=== PATIENT | female | born 1935 | race Two or more races ===

== ENCOUNTER 2019-01-20 11:37 | Inpatient (IN) | payer MEDICARE, MEDICAID ==
[2019-01-20 11:37] VITALS: BMI 30.2
--- NOTE | 2019-01-20 11:57 | C.PDOC ---
History Of Present Illness 83 year old female patient who is on dialysis presents to the ER complaining of left sided chest pain that radiates to the left side of the neck. Associated symptoms includes bilateral leg pain and intermittent tingling sensation in her legs, L>R. Patient denies abdominal pain. Time Seen by Provider: 01/20/19 11:48 Chief Complaint (Nursing): Chest Pain History Per: Patient History/Exam Limitations: no limitations Onset/Duration Of Symptoms: Days Current Symptoms Are (Timing): Still Present Past Medical History Reviewed: Historical Data, Nursing Documentation, Vital Signs - Medical History PMH: Arthritis, Asthma, Bronchitis, CHF, Diabetes, Gall Bladder Disease, HTN, Hypercholesterolemia, Migraine, Chronic Kidney Disease (renal insuff.), TIA Surgical History: Coronary Stent - [facility] Procedures CONTR CEREBR ARTERIOGRAM (01/11/06) CONTRAST AORTOGRAM (01/11/06) INJECT/INFUSE NEC (08/01/13) PACKED CELL TRANSFUSION (08/01/13) VENOUS PUNCTURE NEC (12/21/11) Family History: States: No Known Family Hx - Social History Hx Tobacco Use: No Hx Alcohol Use: No Hx Substance Use: No Review Of Systems Except As Marked, All Systems Reviewed And Found Negative. Cardiovascular: Positive for: Chest Pain (left-side) Gastrointestinal: Negative for: Abdominal Pain Musculoskeletal: Positive for: Neck Pain (left side; radiated from the left side chest pain ), Back Pain (left side; radiated from left-sided chest pain ), Leg Pain (b/l ) Neurological: Positive for: Other (intermittent tingling sensation in her b/l legs) Physical Exam - Physical Exam Appears: Non-toxic, No Acute Distress Skin: Warm, Dry Head: Atraumatic, Normacephalic Eye(s): bilateral: EOMI Chest: Symmetrical, No Deformity, No Tenderness, No Ecchymosis Cardiovascular: Rhythm Regular Respiratory: Normal Breath Sounds Gastrointestinal/Abdominal: Soft, No Tenderness Back: No CVA Tenderness, No Vertebral Tenderness, No Paraspinal Tenderness Extremity: Normal ROM (x4), Pedal Edema (2+ b/l), No Calf Tenderness, No Deformity Extremity: Bilateral: Normal Color And Temperature Pulses: Left Dorsalis Pedis: Normal, Right Dorsalis Pedis: Normal Neurological/Psych: Oriented x3, Normal Speech, Normal Cognition, Normal Motor, Normal Sensation ED Course And Treatment - Laboratory Results Result Diagrams: 01/20/19 12:35 01/20/19 12:35 ECG: Interpreted By Me, Viewed By Me ECG Rhythm: Sinus Rhythm Interpretation Of ECG: T wave inversion in V3-V6. AVF, poor R wave progression Rate From EC O2 Sat by Pulse Oximetry: 98 (on RA) Pulse Ox Interpretation: Normal - Radiology CXR: Interpreted by Me CXR Interpretation: Yes: Cardiomegaly Medical Decision Making Medical Decision Making: Plans: -- labs The case was discussed with Dr. Walter who agrees to admit to tele Disposition - Disposition Disposition: HOSPITALIZED Disposition Time: 14:00 Condition: GOOD - POA Present On Arrival: None - Clinical Impression Clinical Impression: Chest pain - PA / STEWARD/STEWARDESS SECOND CLASS / Resident Statement MD/ has reviewed & agrees with the documentation as recorded. - Scribe Statement The provider has reviewed the documentation as recorded by the Scribe Ricarda Mckenna All medical record entries made by the Scribe were at my direction and personally dictated by me. I have reviewed the chart and agree that the record accurately reflects my personal performance of the history, physical exam, medical decision making, and the department course for this patient. I have also personally directed, reviewed, and agree with the discharge instructions and disposition.
[2019-01-20 12:46] LABS: BASO # 0.1 K/uL (0.0-0.2); BASO % 1.1 % (0.0-2.0); EOS # 0.2 K/uL (0.0-0.7); EOS % 3.7 % (0.0-4.0); HEMOGLOBIN 12.1 g/dL (11.0-16.0); LYMPH # 1.3 K/uL (1.0-4.3); MEAN CELL VOLUME 97.9 fL (81.0-99.0); MEAN CORPUSCULAR HGB CONC 32.7 g/dL (33.0-37.0); MEAN PLATELET VOLUME 9.9 fL (7.2-11.7); MONO # 0.8 K/uL (0.0-0.8); MONO % 15.2 % (0.0-10.0); NEUT # 2.8 K/uL (1.8-7.0); NRBC % 0.1 % (0.0-2.0); RBC 3.77 Mil/uL (3.80-5.20); RED CELL DISTRIBUTION WIDTH 19.9 % (11.5-14.5); WHITE BLOOD COUNT 5.2 K/uL (4.8-10.8)
[2019-01-20 12:59] LABS: INR 1.1; PROTHROMBIN TIME 11.7 SECONDS (9.7-12.2)
[2019-01-20 13:10] LABS: BLOOD UREA NITROGEN 51 mg/dL (7-17); CALCIUM 8.4 mg/dl (8.6-10.4); GFR NON-AFRICAN AMERICAN 8
[2019-01-20 13:16] LABS: B-TYPE NATRIURETIC PEPTIDE 21200 pg/mL (0-900); CK-MB 0.91 ng/mL (0.0-3.38)
[2019-01-20 13:20] LABS: ALBUMIN 4.1 g/dL (3.5-5.0); ALT/SGPT < 6 U/L (9-52); AST/SGOT 60 U/L (14-36)
--- NOTE | 2019-01-20 14:41 | CP.PCM.HP ---
<Arabella Stephenson - Last Filed: 01/20/19 17:09> History of Present Illness - History of Present Illness History of Present Illness: Medicine Note for Hospitalist Service This is an 83 year old female with PMHx of Hypertension, Hyperlipidemia, Type 2 DM (IDDM), ESRD on HD (MWF, left AVF), hx CAD with stents, Anemia of Chronic Disease, Gout, Arthritis, Dementia, Tobacco Use Disorder, CVA, and encephalomalacia who presents to the ED with chest pain x 1 day, dyspnea on exertion x 1 month. Patient reports she ambulates with cane or walker and noticed the past month she has become more short of breath while ambulating. She admits she cannot lie down flat without having a sensation of choking. She admits her bilateral lower extremities have been getting more swollen over time. This morning she woke up and she felt generalized weakness. She admitted to left sided chest pain that radiates up to her neck, associated with diaphoresis and shortness of breath. The left sided chest pain is reproducible on exam. Denied fever, chills, sick contacts, recent travel, abdominal pain, n/v/d/c, or urinary complaints. PMHx: As noted above PSHx: PCI x 5 stents, left shoulder, stent in left arm Meds: Will need to call pharmacy to confirm as pharmacy was closed when called All: NKDA SHx: Smokes 1 pack per month since the age of 12, denied ETOH or illicit drug use FHx: Hypertension, DM Pharmacy: [facility] [phone] PMD: Priya Cardio: Lopez Nephro: Dr. Martinez Present on Admission - Present on Admission Any Indicators Present on Admission: No Past Patient History - Tetanus Immunizations Tetanus Immunization: Unknown - Past Social History Smoking Status: Never Smoked - CARDIAC Hx Congestive Heart Failure: Yes Hx Hypercholesterolemia: Yes Hx Hypertension: Yes - PULMONARY Hx Asthma: Yes Hx Bronchitis: Yes - NEUROLOGICAL Hx Migraine: Yes Hx Transient Ischemic Attacks (TIA): Yes - HEENT Hx HEENT Problems: Yes Hx Cataracts: Yes Hx Glaucoma: Yes - RENAL Hx Chronic Kidney Disease: Yes (renal insuff.) - ENDOCRINE/METABOLIC Hx Hyperthyroidism: No Hx Hypothyroidism: No - HEMATOLOGICAL/ONCOLOGICAL Hx Anemia: No Hx Human Immunodeficiency Virus (HIV): No Hx Sickle Cell Disease: No - INTEGUMENTARY Hx Dermatological Problems: No Hx Basil Cell: No Hx Eczema: No Hx Melanoma: No Hx Psoriasis: No Hx Squamous Cell: No - MUSCULOSKELETAL/RHEUMATOLOGICAL Hx Arthritis: Yes - GASTROINTESTINAL Hx Gall Bladder Disease: Yes - GENITOURINARY/GYNECOLOGICAL Hx Sexually Transmitted Disorders: No - PSYCHIATRIC Hx Substance Use: No - SURGICAL HISTORY Hx Coronary Stent: Yes Meds Allergies/Adverse Reactions: Allergies Allergy/AdvReac Type Severity Reaction Status Date / Time No Known Allergies Allergy Verified 01/20/19 11:57 Physical Exam - Constitutional Appears: No Acute Distress - Head Exam Head Exam: NORMAL INSPECTION, NORMOCEPHALIC - Eye Exam Eye Exam: EOMI, Normal appearance, PERRL Pupil Exam: NORMAL ACCOMODATION - ENT Exam ENT Exam: Mucous Membranes Moist - Respiratory Exam Respiratory Exam: Chest Wall Tenderness (left sided and midaxillary ), Clear to Auscultation Bilateral, NORMAL BREATHING PATTERN. absent: Decreased Breath So unds, Rhonchi, Wheezes - Cardiovascular Exam Cardiovascular Exam: REGULAR RHYTHM, RRR - GI/Abdominal Exam GI & Abdominal Exam: Normal Bowel Sounds, Soft. absent: Distended, Tenderness - Extremities Exam Extremities exam: Positive for: normal inspection, pedal edema (+1 bilaterally R>L ), tenderness (bilateral calf ), pedal pulses present - Neurological Exam Neurological exam: Alert, CN II-XII Intact, Oriented x3 - Psychiatric Exam Psychiatric exam: Normal Affect, Normal Mood - Skin Skin Exam: Dry, Intact, Normal Color, Warm Results - Vital Signs Recent Vital Signs: Last Vital Signs Temp 98 F 01/20/19 11:50 Pulse 76 01/20/19 14:37 Resp 18 01/20/19 14:37 BP 168/52 H 01/20/19 14:37 Pulse Ox 100 01/20/19 14:37 - Labs Result Diagrams: 01/20/19 12:35 01/20/19 12:35 Labs: Laboratory Results - last 24 hr 01/20/19 01/20/19 01/20/19 11:49 12:35 12:35 WBC 5.2 RBC 3.77 L Hgb 12.1 Hct 36.9 MCV 97.9 MCH 32.0 H MCHC 32.7 L RDW 19.9 H Plt Count 162 MPV 9.9 Neut % (Auto) 55.0 Lymph % (Auto) 25.0 Dawes % (Auto) 15.2 H Eos % (Auto) 3.7 Baso % (Auto) 1.1 Neut # (Auto) 2.8 Lymph # (Auto) 1.3 Dawes # (Auto) 0.8 Eos # (Auto) 0.2 Baso # (Auto) 0.1 PT 11.7 INR 1.1 APTT 33.0 Sodium Potassium Chloride Carbon Dioxide Anion Gap BUN Creatinine Est GFR ( Amer) Est GFR (Non-Af Amer) POC Glucose (mg/dL) 104 Random Glucose Calcium Total Bilirubin AST ALT Alkaline Phosphatase Total Creatine Kinase CK-MB (Mass) Troponin I NT-Pro-B Natriuret Pep Total Protein Albumin Globulin Albumin/Globulin Ratio 01/20/19 12:35 WBC RBC Hgb Hct MCV MCH MCHC RDW Plt Count MPV Neut % (Auto) Lymph % (Auto) Dawes % (Auto) Eos % (Auto) Baso % (Auto) Neut # (Auto) Lymph # (Auto) Dawes # (Auto) Eos # (Auto) Baso # (Auto) PT INR APTT Sodium 137 Potassium 5.8 H Chloride 101 Carbon Dioxide 25 Anion Gap 18 BUN 51 H Creatinine 5.1 H Est GFR ( Amer) 10 Est GFR (Non-Af Amer) 8 POC Glucose (mg/dL) Random Glucose 95 Calcium 8.4 L Total Bilirubin 1.2 AST 60 H ALT < 6 L Alkaline Phosphatase 188 H Total Creatine Kinase 60 CK-MB (Mass) 0.91 Troponin I 0.0260 NT-Pro-B Natriuret Pep 01698 H Total Protein 8.1 Albumin 4.1 Globulin 4.0 H Albumin/Globulin Ratio 1.0 Assessment & Plan - Assessment and Plan (Free Text) Plan: Chest Pain r/o ACS - Acute History of CAD with 5 stents - Chronic Dypsnea on Exertion - Acute -- Cardiology consulted - Dr. Marroquin Imaging - EKG: t wave inversions noted V3-V6 - Initial ELISA - negative, follow up ELISA x 2, EKGs x 2 - F/U ECHO Management - Day team will confirm medications as patient is unaware and pharmacy is closed - Started ASA, Plavix, Crestor Bilateral Lower Extremity Swelling - Acute - F/U venous dopplers Hypertension - Chronic - Will need to confirm meds as these are meds from EMR from 2012 ESRD on HD (MWF, left AVF) - Chronic Anemia of Chronic Disease - Chronic -- Nephrology consulted - Dr. Garay Hyperlipidemia - Chronic - Started Crestor - will need to confirm Type 2 DM (IDDM) - Chronic - Accuchecks, hypoglycemic protocol - ISS- low - Glucerna supplements Gout - Chronic Arthritis - Chronic Dementia - Chronic Tobacco Use Disorder - Chronic - Nicotine daily CVA - Chronic Encephalomalacia - Chronic Prophylactic Measures - GI PPX: Protonix - DVT PPX: SCD - PT / OT Eval - Suppp: Glucerna Disposition: Will trend ROMIs and EKG. Follow up Cardio reccs. Will need to confirm home medications DW Dr. Walter, Arabella Stephenson DO, PGY2 <Jordan Walter - Last Filed: 01/20/19 18:04> Results - Vital Signs Recent Vital Signs: Last Vital Signs Temp 97.2 F L 01/20/19 15:47 Pulse 69 01/20/19 16:03 Resp 20 01/20/19 15:47 BP 151/73 H 01/20/19 15:47 Pulse Ox 98 01/20/19 15:47 - Labs Result Diagrams: 01/20/19 12:35 01/20/19 12:35 Labs: Laboratory Results - last 24 hr 01/20/19 01/20/19 01/20/19 11:49 12:35 12:35 WBC 5.2 RBC 3.77 L Hgb 12.1 Hct 36.9 MCV 97.9 MCH 32.0 H MCHC 32.7 L RDW 19.9 H Plt Count 162 MPV 9.9 Neut % (Auto) 55.0 Lymph % (Auto) 25.0 Dawes % (Auto) 15.2 H Eos % (Auto) 3.7 Baso % (Auto) 1.1 Neut # (Auto) 2.8 Lymph # (Auto) 1.3 Dawes # (Auto) 0.8 Eos # (Auto) 0.2 Baso # (Auto) 0.1 PT 11.7 INR 1.1 APTT 33.0 Sodium Potassium Chloride Carbon Dioxide Anion Gap BUN Creatinine Est GFR ( Amer) Est GFR (Non-Af Amer) POC Glucose (mg/dL) 104 Random Glucose Calcium Total Bilirubin AST ALT Alkaline Phosphatase Total Creatine Kinase CK-MB (Mass) Troponin I NT-Pro-B Natriuret Pep Total Protein Albumin Globulin Albumin/Globulin Ratio 01/20/19 01/20/19 12:35 16:23 WBC RBC Hgb Hct MCV MCH MCHC RDW Plt Count MPV Neut % (Auto) Lymph % (Auto) Dawes % (Auto) Eos % (Auto) Baso % (Auto) Neut # (Auto) Lymph # (Auto) Dawes # (Auto) Eos # (Auto) Baso # (Auto) PT INR APTT Sodium 137 Potassium 5.8 H Chloride 101 Carbon Dioxide 25 Anion Gap 18 BUN 51 H Creatinine 5.1 H Est GFR ( Amer) 10 Est GFR (Non-Af Amer) 8 POC Glucose (mg/dL) 83 Random Glucose 95 Calcium 8.4 L Total Bilirubin 1.2 AST 60 H ALT < 6 L Alkaline Phosphatase 188 H Total Creatine Kinase 60 CK-MB (Mass) 0.91 Troponin I 0.0260 NT-Pro-B Natriuret Pep 02308 H Total Protein 8.1 Albumin 4.1 Globulin 4.0 H Albumin/Globulin Ratio 1.0 Attending/Attestation - Attestation I have personally seen and examined this patient.: Yes I have fully participated in the care of the patient.: Yes I have reviewed all pertinent clinical information: Yes Notes (Text): 01/20/19 17:58 Medical attending: Patient was seen and examined by me. Agree with the above note by the resident The patient was not in any acute distress when I came and saw with the medical assisting instructor however the patient reported she still had chest pain that was reproducible on the left upper chest. The patient had a chest XRAY and this showed moderate congestion. There are also history of stents seen on the chest. Also the patient has a history of CAD and at least 5 stents seen the patient we are getting also an echo and also cardiology evaluation as well. Plavix, ASA, Statin. The patient has ESRD and get HD on MWF. The last dialysis was on Wednesday, so we will try to consult performance analyst so she can have it today. Jordan Walter
[2019-01-20] MEDS ORDERED: Morphine 4 MG/ML VIAL ONE (14:44)
--- NOTE | 2019-01-20 14:59 | RAD ---
Date of service: 01/20/2019 HISTORY: chest pain, SOB COMPARISON: No prior. TECHNIQUE: Chest PA and lateral views FINDINGS: LUNGS: No active pulmonary disease. PLEURA: No significant pleural effusion identified. No pneumothorax apparent. CARDIOVASCULAR: No aortic atherosclerotic calcification present. Normal cardiac size. Left axillary vascular stent noted. OSSEOUS STRUCTURES: No significant abnormalities. VISUALIZED UPPER ABDOMEN: Normal. OTHER FINDINGS: None. IMPRESSION: No active disease.
[2019-01-20] MEDS ORDERED: Glucagon Recombinant 1 mg Inj IM PRN (17:01)
[2019-01-20] MEDS ORDERED: Dextrose 50% SYRINGE Inj (50 ml) IV PRN (17:01)
[2019-01-20 20:46] LABS: TROPONIN I 0.028 ng/mL (0.00-0.120)
[2019-01-20 20:47] LABS: CK-MB 0.9 ng/mL (0.0-3.38)
[2019-01-20] MEDS: (Novolin R) Insulin Human Regular 100 units/ml vial SC SCH (22:13)
[2019-01-21 06:41] LABS: BASO % 0.9 % (0.0-2.0); EOS # 0.2 K/uL (0.0-0.7); EOS % 4.3 % (0.0-4.0); HEMOGLOBIN 10.9 g/dL (11.0-16.0); LYMPH # 1.4 K/uL (1.0-4.3); LYMPH % 34.2 % (20.0-40.0); MEAN CELL VOLUME 97.2 fL (81.0-99.0); MEAN CORPUSCULAR HEMOGLOBIN 31.9 pg (27.0-31.0); MEAN CORPUSCULAR HGB CONC 32.8 g/dL (33.0-37.0); MEAN PLATELET VOLUME 9.2 fL (7.2-11.7); MONO # 0.7 K/uL (0.0-0.8); NEUT # 1.8 K/uL (1.8-7.0); NEUT % 43.6 % (50.0-75.0); NRBC % 0.1 % (0.0-2.0); RBC 3.42 Mil/uL (3.80-5.20); WHITE BLOOD COUNT 4.1 K/uL (4.8-10.8)
[2019-01-21 06:49] LABS: ALBUMIN 3.2 g/dL (3.5-5.0); CALCIUM 8.4 mg/dl (8.6-10.4)
[2019-01-21] MEDS: (Novolin R) Insulin Human Regular 100 units/ml vial SC SCH ×4 (07:30→21:10)
--- NOTE | 2019-01-21 11:00 | CP.PCM.CON ---
History of Present Illness - History of Present Illness History of Present Illness: 83 y/o female with ESRD on maintenance hemodialysis every MWF, IDDM, CAD with coronary artery stents, HLD, arthririts was brought to ER last pm for c/o SOB, swelling of legd & Lt sided CP. Pt had repored that lately she gets SOB easily with exertion & cannot breath well when lying flat in the bed Pt also had c/o pain & numbness in both legs , Lt armm & Lt neck She had missed scheduled dialysis yesterday because felt too weak to go to dialysis clinic Pt received dialysis last evening with UF of 2.5 L. Feels better but stil has orthopnea & swelling of legs. Review of Systems - Constitutional Constitutional: As Per HPI Past Patient History - Tetanus Immunizations Tetanus Immunization: Unknown - Past Medical History & Family History Past Medical History?: Yes - Past Social History Smoking Status: Never Smoked - CARDIAC Hx Cardiac Disorders: Yes Hx Congestive Heart Failure: Yes Hx Hypercholesterolemia: Yes Hx Hypertension: Yes - PULMONARY Hx Asthma: Yes Hx Bronchitis: Yes - NEUROLOGICAL Hx Migraine: Yes Hx Transient Ischemic Attacks (TIA): Yes - HEENT Hx HEENT Problems: Yes Hx Cataracts: Yes Hx Glaucoma: Yes - RENAL Hx Chronic Kidney Disease: Yes (renal insuff.) - ENDOCRINE/METABOLIC Hx Hyperthyroidism: No Hx Hypothyroidism: No - HEMATOLOGICAL/ONCOLOGICAL Hx Anemia: No Hx Human Immunodeficiency Virus (HIV): No Hx Sickle Cell Disease: No - INTEGUMENTARY Hx Dermatological Problems: No Hx Basil Cell: No Hx Eczema: No Hx Melanoma: No Hx Psoriasis: No Hx Squamous Cell: No - MUSCULOSKELETAL/RHEUMATOLOGICAL Hx Arthritis: Yes - GASTROINTESTINAL Hx Gall Bladder Disease: Yes - GENITOURINARY/GYNECOLOGICAL Hx Sexually Transmitted Disorders: No - PSYCHIATRIC Hx Substance Use: No - SURGICAL HISTORY Hx Coronary Stent: Yes - ANESTHESIA Hx Anesthesia: Yes Hx Anesthesia Reactions: No Meds Allergies/Adverse Reactions: Allergies Allergy/AdvReac Type Severity Reaction Status Date / Time No Known Allergies Allergy Verified 01/20/19 11:57 - Medications Medications: Current Medications Acetaminophen (Tylenol 325mg Tab) 650 mg PO Q6 PRN PRN Reason: Pain, Mild (1-3) Allopurinol (Zyloprim) 100 mg PO DAILY COUNT INCLUDES THE [facility] Last Admin: 01/21/19 09:16 Dose: 100 mg Amlodipine Besylate (Norvasc) 5 mg PO DAILY COUNT INCLUDES THE [facility] Last Admin: 01/21/19 09:16 Dose: 5 mg Aspirin (Aspirin Chewable) 81 mg PO DAILY COUNT INCLUDES THE [facility] Last Admin: 01/21/19 09:16 Dose: 81 mg Clopidogrel Bisulfate (Plavix) 75 mg PO DAILY COUNT INCLUDES THE [facility] Last Admin: 01/21/19 09:16 Dose: 75 mg Dextrose (Dextrose 50% Inj) 0 ml IV STAT PRN; Protocol PRN Reason: Hypoglycemia Protocol Dextrose (Glutose 15) 0 gm PO ONCE PRN; Protocol PRN Reason: Hypoglycemia Protocol Famotidine (Pepcid) 20 mg PO DAILY COUNT INCLUDES THE [facility] Last Admin: 01/21/19 09:15 Dose: 20 mg Glucagon (Glucagen Diagnostic Kit) 0 mg IM STAT PRN; Protocol PRN Reason: Hypoglycemia Protocol Dextrose (Dextrose 5% In Water 1000 Ml) 1,000 mls @ 0 mls/hr IV .Q0M PRN; Protocol PRN Reason: Hypoglycemia Protocol Insulin Human Regular (Novolin R) 0 unit SC ACHS COUNT INCLUDES THE [facility]; Protocol Last Admin: 01/21/19 07:30 Dose: Not Given Ketorolac Tromethamine (Toradol) 15 mg IVP Q6H PRN PRN Reason: Pain, moderate (4-7) Nicotine (Nicoderm Cq) 1 patch TD DAILY COUNT INCLUDES THE [facility] Rosuvastatin Calcium (Crestor) 10 mg PO HS COUNT INCLUDES THE [facility] Last Admin: 01/21/19 09:17 Dose: 10 mg Physical Exam - Constitutional Additional comments: Appears weak - Head Exam Head Exam: ATRAUMATIC, NORMOCEPHALIC - Eye Exam Additional comments: Conjunctiva pale . No icterus - ENT Exam ENT Exam: Mucous Membranes Moist - Neck Exam Additional comments: Neck supple - Respiratory Exam Respiratory Exam: NORMAL BREATHING PATTERN Additional comments: Bibasilat rales - Cardiovascular Exam Cardiovascular Exam: REGULAR RHYTHM Additional comments: JVD + @ 40 degrees - GI/Abdominal Exam GI & Abdominal Exam: Soft Additional comments: No tenderness - Rectal Exam Rectal Exam: Deferred - Extremities Exam Additional comments: 1+ bipedal edema + bruit over Lt arm AVF Results - Vital Signs Recent Vital Signs: Last Vital Signs Temp 97.6 F 01/21/19 07:00 Pulse 58 L 01/21/19 07:00 Resp 18 01/21/19 07:00 BP 153/54 H 01/21/19 07:00 Pulse Ox 96 01/21/19 07:00 - Labs Result Diagrams: 01/21/19 06:27 01/21/19 06:27 Labs: Laboratory Results - last 24 hr 01/20/19 01/20/19 01/20/19 11:49 12:35 12:35 WBC 5.2 RBC 3.77 L Hgb 12.1 Hct 36.9 MCV 97.9 MCH 32.0 H MCHC 32.7 L RDW 19.9 H Plt Count 162 MPV 9.9 Neut % (Auto) 55.0 Lymph % (Auto) 25.0 Hodgeman % (Auto) 15.2 H Eos % (Auto) 3.7 Baso % (Auto) 1.1 Neut # (Auto) 2.8 Lymph # (Auto) 1.3 Hodgeman # (Auto) 0.8 Eos # (Auto) 0.2 Baso # (Auto) 0.1 PT 11.7 INR 1.1 APTT 33.0 Sodium Potassium Chloride Carbon Dioxide Anion Gap BUN Creatinine Est GFR ( Amer) Est GFR (Non-Af Amer) POC Glucose (mg/dL) 104 Random Glucose Calcium Phosphorus Magnesium Total Bilirubin AST ALT Alkaline Phosphatase Total Creatine Kinase CK-MB (Mass) Troponin I NT-Pro-B Natriuret Pep Total Protein Albumin Globulin Albumin/Globulin Ratio Triglycerides Cholesterol LDL Cholesterol Direct HDL Cholesterol Free T4 TSH 3rd Generation 01/20/19 01/20/19 01/20/19 12:35 16:23 19:59 WBC RBC Hgb Hct MCV MCH MCHC RDW Plt Count MPV Neut % (Auto) Lymph % (Auto) Hodgeman % (Auto) Eos % (Auto) Baso % (Auto) Neut # (Auto) Lymph # (Auto) Hodgeman # (Auto) Eos # (Auto) Baso # (Auto) PT INR APTT Sodium 137 Potassium 5.8 H Chloride 101 Carbon Dioxide 25 Anion Gap 18 BUN 51 H Creatinine 5.1 H Est GFR ( Amer) 10 Est GFR (Non-Af Amer) 8 POC Glucose (mg/dL) 83 Random Glucose 95 Calcium 8.4 L Phosphorus Magnesium Total Bilirubin 1.2 AST 60 H ALT < 6 L Alkaline Phosphatase 188 H Total Creatine Kinase 60 39 CK-MB (Mass) 0.91 0.90 Troponin I 0.0260 0.0280 NT-Pro-B Natriuret Pep 35296 H Total Protein 8.1 Albumin 4.1 Globulin 4.0 H Albumin/Globulin Ratio 1.0 Triglycerides Cholesterol LDL Cholesterol Direct HDL Cholesterol Free T4 TSH 3rd Generation 01/20/19 01/21/19 01/21/19 21:55 06:27 06:27 WBC 4.1 L RBC 3.42 L Hgb 10.9 L Hct 33.2 L MCV 97.2 MCH 31.9 H MCHC 32.8 L RDW 20.0 H Plt Count 145 MPV 9.2 Neut % (Auto) 43.6 L Lymph % (Auto) 34.2 Hodgeman % (Auto) 17.0 H Eos % (Auto) 4.3 H Baso % (Auto) 0.9 Neut # (Auto) 1.8 Lymph # (Auto) 1.4 Hodgeman # (Auto) 0.7 Eos # (Auto) 0.2 Baso # (Auto) 0.0 PT INR APTT Sodium 136 Potassium 3.6 Chloride 98 Carbon Dioxide 32 H Anion Gap 9 L BUN 23 H Creatinine 3.2 H Est GFR ( Amer) 17 Est GFR (Non-Af Amer) 14 POC Glucose (mg/dL) 90 Random Glucose 83 Calcium 8.4 L Phosphorus 3.8 Magnesium 1.9 Total Bilirubin 0.3 AST 22 ALT 13 Alkaline Phosphatase 170 H Total Creatine Kinase CK-MB (Mass) Troponin I NT-Pro-B Natriuret Pep Total Protein 6.4 Albumin 3.2 L D Globulin 3.2 Albumin/Globulin Ratio 1.0 Triglycerides 89 Cholesterol 155 LDL Cholesterol Direct 66 HDL Cholesterol 56 Free T4 TSH 3rd Generation 0.27 L 01/21/19 01/21/19 06:27 06:33 WBC RBC Hgb Hct MCV MCH MCHC RDW Plt Count MPV Neut % (Auto) Lymph % (Auto) Hodgeman % (Auto) Eos % (Auto) Baso % (Auto) Neut # (Auto) Lymph # (Auto) Hodgeman # (Auto) Eos # (Auto) Baso # (Auto) PT INR APTT Sodium Potassium Chloride Carbon Dioxide Anion Gap BUN Creatinine Est GFR ( Amer) Est GFR (Non-Af Amer) POC Glucose (mg/dL) 92 Random Glucose Calcium Phosphorus Magnesium Total Bilirubin AST ALT Alkaline Phosphatase Total Creatine Kinase CK-MB (Mass) Troponin I NT-Pro-B Natriuret Pep Total Protein Albumin Globulin Albumin/Globulin Ratio Triglycerides Cholesterol LDL Cholesterol Direct HDL Cholesterol Free T4 1.65 TSH 3rd Generation Assessment & Plan - Assessment and Plan (Free Text) Assessment: ESRD on maintenance HD Symptoms have improves after dialysis. However still has signes of volume overload.Will arrange for extra dialysis today them continue HD MWF CAD, c/o CP Hx/o CHF IDDM Peripheral neuropathy Hx/o CVA Plan: Short dialysis treatment today UF 2 L as tolerated After today continue HD MWF
--- NOTE | 2019-01-21 12:09 | CP.PCM.PN ---
Subjective - Date & Time of Evaluation Date of Evaluation: 01/21/19 Time of Evaluation: 12:00 - Subjective Subjective: Patient was seen and examined by me Last night patient received HD and this morning will have another short session of HD as well. Patient reports she did well with the HD last night. She has less shortness of breath now. Still has the lower extremity swelling She also reports she still has the tenderness of the left upper chest - it is very reproducible on exam. She had both morphine and toradol order - so I told them to try the toradol Her cardiac enzymes are negative x 3. She went for the echo this morning. Objective - Vital Signs/Intake and Output Vital Signs (last 24 hours): Temp Pulse Resp BP Pulse Ox 97.6 F 58 L 18 153/54 H 96 01/21/19 07:00 01/21/19 07:00 01/21/19 07:00 01/21/19 07:00 01/21/19 07:00 Intake and Output: 01/21/19 01/21/19 06:59 18:59 Output Total 0 Balance 0 - Medications Medications: Current Medications Acetaminophen (Tylenol 325mg Tab) 650 mg PO Q6 PRN PRN Reason: Pain, Mild (1-3) Allopurinol (Zyloprim) 100 mg PO DAILY [facility] Last Admin: 01/21/19 09:16 Dose: 100 mg Amlodipine Besylate (Norvasc) 5 mg PO DAILY [facility] Last Admin: 01/21/19 09:16 Dose: 5 mg Aspirin (Aspirin Chewable) 81 mg PO DAILY [facility] Last Admin: 01/21/19 09:16 Dose: 81 mg Clopidogrel Bisulfate (Plavix) 75 mg PO DAILY [facility] Last Admin: 01/21/19 09:16 Dose: 75 mg Dextrose (Dextrose 50% Inj) 0 ml IV STAT PRN; Protocol PRN Reason: Hypoglycemia Protocol Dextrose (Glutose 15) 0 gm PO ONCE PRN; Protocol PRN Reason: Hypoglycemia Protocol Famotidine (Pepcid) 20 mg PO DAILY [facility] Last Admin: 01/21/19 09:15 Dose: 20 mg Glucagon (Glucagen Diagnostic Kit) 0 mg IM STAT PRN; Protocol PRN Reason: Hypoglycemia Protocol Dextrose (Dextrose 5% In Water 1000 Ml) 1,000 mls @ 0 mls/hr IV .Q0M PRN; Protocol PRN Reason: Hypoglycemia Protocol Insulin Human Regular (Novolin R) 0 unit SC [facility]; Protocol Last Admin: 01/21/19 07:30 Dose: Not Given Ketorolac Tromethamine (Toradol) 15 mg IVP Q6H PRN PRN Reason: Pain, moderate (4-7) Last Admin: 01/21/19 11:20 Dose: 15 mg Nicotine (Nicoderm Cq) 1 patch TD DAILY [facility] Rosuvastatin Calcium (Crestor) 10 mg PO HS [facility] Last Admin: 01/21/19 09:17 Dose: 10 mg - Labs Labs: 01/21/19 06:27 01/21/19 06:27 PT 11.7 SECONDS (9.7-12.2) 01/20/19 12:35 INR 1.1 01/20/19 12:35 APTT 33.0 SECONDS (21-34) 01/20/19 12:35 - Constitutional Appears: Well, Non-toxic, No Acute Distress - Head Exam Head Exam: NORMAL INSPECTION, NORMOCEPHALIC - Eye Exam Eye Exam: EOMI, Normal appearance - ENT Exam ENT Exam: Mucous Membranes Moist - Respiratory Exam Respiratory Exam: Rales, Rhonchi, NORMAL BREATHING PATTERN - Cardiovascular Exam Cardiovascular Exam: REGULAR RHYTHM - GI/Abdominal Exam GI & Abdominal Exam: Soft, Normal Bowel Sounds. absent: Distended, Firm, Guarding, Rigid, Tenderness - Neurological Exam Neurological Exam: Alert, Awake, Oriented x3 Neuro motor strength exam: Left Upper Extremity: 5, Right Upper Extremity: 5, Left Lower Extremity: 5, Right Lower Extremity: 5 - Psychiatric Exam Psychiatric exam: Flat Affect - Skin Skin Exam: Normal Color, Warm Assessment and Plan - Assessment and Plan (Free Text) Assessment: Chest Pain r/o ACS - Acute 01/21: Troponins negative x 3. The chest pain seems reproducible, trying toradol to see if it gives her relief. This morning had the echo, pending read at this time. CXRAY still showing some congestion. On ASA, Plavix, Statin History of CAD with 5 stents - Chronic 01/21: As mentioned previously on ASA, Statin, Plavix. Echo and cardiology evaluation The chest pain is reproducible Bilateral Lower Extremity Swelling - Acute 01/21: Pending venous dopplers this morning Hypertension - Chronic 01/21: Systolic BPs are a little high (140, 150, 160) On norvasc 5. She is going for additional HD today so added very low dose Coreg for now and monitor ESRD on HD (MWF, left AVF) - Chronic Anemia of Chronic Disease - Chronic 01/21: Had HD last night, the patient will have another session this morning. Smoker: 01/21: She still smokes, despite stents, DM, CAD, and right now getting nicotine patch. Hyperlipidemia - Chronic - Started Crestor Type 2 DM (IDDM) - Chronic - Accuchecks, hypoglycemic protocol - ISS- low - Glucerna supplements Gout - Chronic Arthritis - Chronic Dementia - Chronic CVA - Chronic Encephalomalacia - Chronic Prophylactic Measures - GI PPX: Protonix - DVT PPX: SCD - PT / OT Eval - Suppp: Glucerna
[2019-01-22 07:24] LABS: BASO % 0.8 % (0.0-2.0); EOS # 0.2 K/uL (0.0-0.7); EOS % 4.1 % (0.0-4.0); HEMOGLOBIN 11.2 g/dL (11.0-16.0); LYMPH # 1.4 K/uL (1.0-4.3); LYMPH % 36.8 % (20.0-40.0); MEAN CELL VOLUME 96.7 fL (81.0-99.0); MEAN CORPUSCULAR HEMOGLOBIN 32.1 pg (27.0-31.0); MEAN CORPUSCULAR HGB CONC 33.2 g/dL (33.0-37.0); MEAN PLATELET VOLUME 9.8 fL (7.2-11.7); MONO # 0.8 K/uL (0.0-0.8); MONO % 19.8 % (0.0-10.0); NEUT # 1.5 K/uL (1.8-7.0); NEUT % 38.5 % (50.0-75.0); NRBC % 0.2 % (0.0-2.0); RBC 3.49 Mil/uL (3.80-5.20); RED CELL DISTRIBUTION WIDTH 19.6 % (11.5-14.5); WHITE BLOOD COUNT 3.9 K/uL (4.8-10.8)
[2019-01-22] MEDS: (Novolin R) Insulin Human Regular 100 units/ml vial SC SCH ×4 (07:30→21:30)
[2019-01-22 08:00] LABS: ALB/GLOB RATIO 1.1 (1.0-2.1); ALBUMIN 3.3 g/dL (3.5-5.0); CALCIUM 8.3 mg/dl (8.6-10.4)
--- NOTE | 2019-01-22 09:31 | CP.PCM.PN ---
Subjective - Date & Time of Evaluation Date of Evaluation: 01/22/19 Time of Evaluation: 09:00 - Subjective Subjective: Patient reported feeling well. No acute events overnight Still has minimal tenderness left chest that is again reproducible with palpat ion. Denied chest pain at rest, denied shortness of breath, no palpitations, denied abdominal pain, denied nausea vommitting. On telemetry she was 60s to 70s NSR She was able to sleep after the toradol was given. She had HD again yesterday afternoon. Objective - Vital Signs/Intake and Output Vital Signs (last 24 hours): Temp Pulse Resp BP Pulse Ox 98.4 F 64 20 139/55 L 99 01/21/19 23:25 01/22/19 07:02 01/21/19 23:25 01/21/19 23:25 01/21/19 23:25 Intake and Output: 01/22/19 01/22/19 06:59 18:59 Intake Total 300 Balance 300 - Medications Medications: Current Medications Acetaminophen (Tylenol 325mg Tab) 650 mg PO Q6 PRN PRN Reason: Pain, Mild (1-3) Allopurinol (Zyloprim) 100 mg PO DAILY [facility] Last Admin: 01/22/19 09:02 Dose: 100 mg Amlodipine Besylate (Norvasc) 5 mg PO DAILY [facility] Last Admin: 01/22/19 09:02 Dose: 5 mg Aspirin (Aspirin Chewable) 81 mg PO DAILY [facility] Last Admin: 01/22/19 09:01 Dose: 81 mg Carvedilol (Coreg) 3.125 mg PO BID [facility] Last Admin: 01/22/19 09:02 Dose: 3.125 mg Clopidogrel Bisulfate (Plavix) 75 mg PO DAILY [facility] Last Admin: 01/22/19 09:01 Dose: 75 mg Dextrose (Dextrose 50% Inj) 0 ml IV STAT PRN; Protocol PRN Reason: Hypoglycemia Protocol Dextrose (Glutose 15) 0 gm PO ONCE PRN; Protocol PRN Reason: Hypoglycemia Protocol Famotidine (Pepcid) 20 mg PO DAILY [facility] Last Admin: 01/22/19 09:01 Dose: 20 mg Glucagon (Glucagen Diagnostic Kit) 0 mg IM STAT PRN; Protocol PRN Reason: Hypoglycemia Protocol Dextrose (Dextrose 5% In Water 1000 Ml) 1,000 mls @ 0 mls/hr IV .Q0M PRN; Protocol PRN Reason: Hypoglycemia Protocol Insulin Human Regular (Novolin R) 0 unit SC ACHS [facility]; Protocol Last Admin: 01/22/19 07:30 Dose: Not Given Ketorolac Tromethamine (Toradol) 15 mg IVP Q6H PRN PRN Reason: Pain, moderate (4-7) Last Admin: 01/22/19 00:37 Dose: 15 mg Nicotine (Nicoderm Cq) 1 patch TD DAILY [facility] Last Admin: 01/22/19 09:01 Dose: 1 patch Rosuvastatin Calcium (Crestor) 10 mg PO HS [facility] Last Admin: 01/21/19 22:06 Dose: 10 mg - Labs Labs: 01/22/19 07:11 01/22/19 07:11 PT 11.7 SECONDS (9.7-12.2) 01/20/19 12:35 INR 1.1 01/20/19 12:35 APTT 33.0 SECONDS (21-34) 01/20/19 12:35 - Constitutional Appears: Well, No Acute Distress - Head Exam Head Exam: NORMAL INSPECTION - Eye Exam Eye Exam: EOMI - ENT Exam ENT Exam: Mucous Membranes Moist - Respiratory Exam Respiratory Exam: Chest Wall Tenderness, Clear to Ausculation Bilateral, NORMAL BREATHING PATTERN - Cardiovascular Exam Cardiovascular Exam: REGULAR RHYTHM - GI/Abdominal Exam GI & Abdominal Exam: Soft, Normal Bowel Sounds. absent: Guarding, Rigid, Tenderness - Neurological Exam Neurological Exam: Alert, Awake, Oriented x3 Neuro motor strength exam: Left Upper Extremity: 5, Right Upper Extremity: 5 - Psychiatric Exam Psychiatric exam: Normal Affect, Normal Mood - Skin Skin Exam: Normal Color, Warm Assessment and Plan - Assessment and Plan (Free Text) Assessment: Chest Pain, reproducible with palpation. 01/22: Still pending echo to be read. She denied shortness of breath, denied palpitations. 01/21: Troponins negative x 3. The chest pain seems reproducible, trying toradol to see if it gives her relief. This morning had the echo, pending read at this time. CXRAY still showing some congestion. On ASA, Plavix, Statin History of CAD with 5 stents - Chronic 01/21: As mentioned previously on ASA, Statin, Plavix. Echo and cardiology evaluation The chest pain is reproducible Bilateral Lower Extremity Swelling - Acute 2: Preliminary venous dopplers negative 01/21: Pending venous dopplers this morning Hypertension - Chronic 01/21: Systolic BPs are a little high (140, 150, 160) On norvasc 5. She is going for additional HD today so added very low dose Coreg for now and monitor ESRD on HD (MWF, left AVF) - Chronic Anemia of Chronic Disease - Chronic 01/22: Last night had more HD. Lower extremity edema resolved now. Not short of br eath 01/21: Had HD last night, the patient will have another session this morning. Smoker: 01/21: She still smokes, despite stents, DM, CAD, and right now getting nicotine patch. Hyperlipidemia - Chronic - Started Crestor Type 2 DM (IDDM) - Chronic - Accuchecks, hypoglycemic protocol - ISS- low - Glucerna supplements Gout - Chronic Arthritis - Chronic Dementia - Chronic CVA - Chronic Encephalomalacia - Chronic Prophylactic Measures - GI PPX: Protonix - DVT PPX: SCD - PT / OT Eval - Suppp: Glucerna
--- NOTE | 2019-01-22 10:15 | CP.PCM.CON ---
History of Present Illness - History of Present Illness History of Present Illness: asked to see pt by dr jenkins in cardiology coverage. Pt seen and examined in HD unit on 01-21-19 at 430pm. Pt with left sided cp for several weeks. pain is sharp, 5/10, reproducible with palpation. occurs with cough. isnt related to activity or rest. radiates to back and down her spine. no nausea vom prado sob f/c/d/c. Past Patient History - Tetanus Immunizations Tetanus Immunization: Unknown - Past Medical History & Family History Past Medical History?: Yes - Past Social History Smoking Status: Never Smoked - CARDIAC Hx Cardiac Disorders: Yes (CAD, Coronary Stent) Hx Congestive Heart Failure: Yes Hx Hypercholesterolemia: Yes Hx Hypertension: Yes - PULMONARY Hx Asthma: Yes Hx Bronchitis: Yes - NEUROLOGICAL Hx Migraine: Yes Hx Transient Ischemic Attacks (TIA): Yes - HEENT Hx HEENT Problems: Yes Hx Cataracts: Yes Hx Glaucoma: Yes - RENAL Hx Chronic Kidney Disease: Yes (renal insuff.) - ENDOCRINE/METABOLIC Hx Diabetes Mellitus Type 2: Yes Hx Hypothyroidism: No - HEMATOLOGICAL/ONCOLOGICAL Hx Anemia: No Hx Human Immunodeficiency Virus (HIV): No Hx Sickle Cell Disease: No - INTEGUMENTARY Hx Dermatological Problems: No Hx Basil Cell: No Hx Eczema: No Hx Melanoma: No Hx Psoriasis: No Hx Squamous Cell: No - MUSCULOSKELETAL/RHEUMATOLOGICAL Hx Arthritis: Yes - GASTROINTESTINAL Hx Gall Bladder Disease: Yes - GENITOURINARY/GYNECOLOGICAL Hx Sexually Transmitted Disorders: No - PSYCHIATRIC Hx Substance Use: No - SURGICAL HISTORY Hx Coronary Stent: Yes - ANESTHESIA Hx Anesthesia: Yes Hx Anesthesia Reactions: No Meds Allergies/Adverse Reactions: Allergies Allergy/AdvReac Type Severity Reaction Status Date / Time No Known Allergies Allergy Verified 01/20/19 11:57 - Medications Medications: Current Medications Acetaminophen (Tylenol 325mg Tab) 650 mg PO Q6 PRN PRN Reason: Pain, Mild (1-3) Allopurinol (Zyloprim) 100 mg PO DAILY [facility] Last Admin: 01/22/19 09:02 Dose: 100 mg Amlodipine Besylate (Norvasc) 5 mg PO DAILY [facility] Last Admin: 01/22/19 09:02 Dose: 5 mg Aspirin (Aspirin Chewable) 81 mg PO DAILY [facility] Last Admin: 01/22/19 09:01 Dose: 81 mg Carvedilol (Coreg) 3.125 mg PO BID [facility] Last Admin: 01/22/19 09:02 Dose: 3.125 mg Clopidogrel Bisulfate (Plavix) 75 mg PO DAILY [facility] Last Admin: 01/22/19 09:01 Dose: 75 mg Dextrose (Dextrose 50% Inj) 0 ml IV STAT PRN; Protocol PRN Reason: Hypoglycemia Protocol Dextrose (Glutose 15) 0 gm PO ONCE PRN; Protocol PRN Reason: Hypoglycemia Protocol Famotidine (Pepcid) 20 mg PO DAILY [facility] Last Admin: 01/22/19 09:01 Dose: 20 mg Glucagon (Glucagen Diagnostic Kit) 0 mg IM STAT PRN; Protocol PRN Reason: Hypoglycemia Protocol Dextrose (Dextrose 5% In Water 1000 Ml) 1,000 mls @ 0 mls/hr IV .Q0M PRN; Protocol PRN Reason: Hypoglycemia Protocol Insulin Human Regular (Novolin R) 0 unit SC A[facility]S [facility]; Protocol Last Admin: 01/22/19 07:30 Dose: Not Given Ketorolac Tromethamine (Toradol) 15 mg IVP Q6H PRN PRN Reason: Pain, moderate (4-7) Last Admin: 01/22/19 00:37 Dose: 15 mg Lidocaine (Lidoderm) 1 ea TD DAILY [facility] Nicotine (Nicoderm Cq) 1 patch TD DAILY [facility] Last Admin: 01/22/19 09:01 Dose: 1 patch Rosuvastatin Calcium (Crestor) 10 mg PO HS [facility] Last Admin: 01/21/19 22:06 Dose: 10 mg Results - Vital Signs Recent Vital Signs: Last Vital Signs Temp 98.4 F 01/21/19 23:25 Pulse 64 01/22/19 07:02 Resp 20 01/21/19 23:25 BP 139/55 L 01/21/19 23:25 Pulse Ox 99 01/21/19 23:25 - Labs Result Diagrams: 01/22/19 07:11 01/22/19 07:11 Labs: Laboratory Results - last 24 hr 01/21/19 01/21/19 01/21/19 06:27 10:36 11:06 WBC RBC Hgb Hct MCV MCH MCHC RDW Plt Count MPV Neut % (Auto) Lymph % (Auto) [place] % (Auto) Eos % (Auto) Baso % (Auto) Neut # (Auto) Lymph # (Auto) [place] # (Auto) Eos # (Auto) Baso # (Auto) Sodium Potassium Chloride Carbon Dioxide Anion Gap BUN Creatinine Est GFR ( Amer) Est GFR (Non-Af Amer) POC Glucose (mg/dL) 209 H Random Glucose Hemoglobin A1c 5.5 Calcium Phosphorus Magnesium Total Bilirubin AST ALT Alkaline Phosphatase Total Protein Albumin Globulin Albumin/Globulin Ratio Hep Bs Antigen Negative 01/21/19 01/21/19 01/22/19 19:59 21:09 06:21 WBC RBC Hgb Hct MCV MCH MCHC RDW Plt Count MPV Neut % (Auto) Lymph % (Auto) [place] % (Auto) Eos % (Auto) Baso % (Auto) Neut # (Auto) Lymph # (Auto) [place] # (Auto) Eos # (Auto) Baso # (Auto) Sodium Potassium Chloride Carbon Dioxide Anion Gap BUN Creatinine Est GFR ( Amer) Est GFR (Non-Af Amer) POC Glucose (mg/dL) 80 107 74 Random Glucose Hemoglobin A1c Calcium Phosphorus Magnesium Total Bilirubin AST ALT Alkaline Phosphatase Total Protein Albumin Globulin Albumin/Globulin Ratio Hep Bs Antigen 01/22/19 01/22/19 07:11 07:11 WBC 3.9 L RBC 3.49 L Hgb 11.2 Hct 33.7 L MCV 96.7 MCH 32.1 H MCHC 33.2 RDW 19.6 H Plt Count 156 MPV 9.8 Neut % (Auto) 38.5 L Lymph % (Auto) 36.8 [place] % (Auto) 19.8 H Eos % (Auto) 4.1 H Baso % (Auto) 0.8 Neut # (Auto) 1.5 L Lymph # (Auto) 1.4 [place] # (Auto) 0.8 Eos # (Auto) 0.2 Baso # (Auto) 0.0 Sodium 137 Potassium 3.7 Chloride 96 L Carbon Dioxide 30 Anion Gap 15 BUN 21 H Creatinine 3.0 H Est GFR ( Amer) 18 Est GFR (Non-Af Amer) 15 POC Glucose (mg/dL) Random Glucose 77 Hemoglobin A1c Calcium 8.3 L Phosphorus 3.9 Magnesium 1.9 Total Bilirubin 0.5 AST 33 ALT 16 Alkaline Phosphatase 167 H Total Protein 6.2 L Albumin 3.3 L Globulin 2.9 Albumin/Globulin Ratio 1.1 Hep Bs Antigen Assessment & Plan (1) ESRD (end stage renal disease) on dialysis Status: Acute (2) HTN (hypertension) Status: Acute (3) Hx of coronary artery disease Status: Acute (4) Chest pain Status: Acute - Assessment and Plan (Free Text) Plan: Pts pain is noncardiac in nature. trop are neg. pt stable for dc to home from cardiac perspective.
--- NOTE | 2019-01-22 12:32 | CP.PCM.PN ---
Subjective - Date & Time of Evaluation Date of Evaluation: 01/22/19 Time of Evaluation: 12:00 - Subjective Subjective: Pt appears cmfortable but still c/o feeling SOB with exertion. No CP Objective - Vital Signs/Intake and Output Vital Signs (last 24 hours): Temp Pulse Resp BP Pulse Ox 98.4 F 64 20 139/55 L 99 01/21/19 23:25 01/22/19 07:02 01/21/19 23:25 01/21/19 23:25 01/21/19 23:25 Intake and Output: 01/22/19 01/22/19 06:59 18:59 Intake Total 300 Balance 300 - Medications Medications: Current Medications Acetaminophen (Tylenol 325mg Tab) 650 mg PO Q6 PRN PRN Reason: Pain, Mild (1-3) Allopurinol (Zyloprim) 100 mg PO DAILY [facility] Last Admin: 01/22/19 09:02 Dose: 100 mg Amlodipine Besylate (Norvasc) 5 mg PO DAILY [facility] Last Admin: 01/22/19 09:02 Dose: 5 mg Aspirin (Aspirin Chewable) 81 mg PO DAILY [facility] Last Admin: 01/22/19 09:01 Dose: 81 mg Carvedilol (Coreg) 3.125 mg PO BID [facility] Last Admin: 01/22/19 09:02 Dose: 3.125 mg Clopidogrel Bisulfate (Plavix) 75 mg PO DAILY [facility] Last Admin: 01/22/19 09:01 Dose: 75 mg Dextrose (Dextrose 50% Inj) 0 ml IV STAT PRN; Protocol PRN Reason: Hypoglycemia Protocol Dextrose (Glutose 15) 0 gm PO ONCE PRN; Protocol PRN Reason: Hypoglycemia Protocol Famotidine (Pepcid) 20 mg PO DAILY [facility] Last Admin: 01/22/19 09:01 Dose: 20 mg Glucagon (Glucagen Diagnostic Kit) 0 mg IM STAT PRN; Protocol PRN Reason: Hypoglycemia Protocol Dextrose (Dextrose 5% In Water 1000 Ml) 1,000 mls @ 0 mls/hr IV .Q0M PRN; Protocol PRN Reason: Hypoglycemia Protocol Insulin Human Regular (Novolin R) 0 unit SC ACHS [facility]; Protocol Last Admin: 01/22/19 07:30 Dose: Not Given Ketorolac Tromethamine (Toradol) 15 mg IVP Q6H PRN PRN Reason: Pain, moderate (4-7) Last Admin: 01/22/19 00:37 Dose: 15 mg Lidocaine (Lidoderm) 1 ea TD DAILY [facility] Nicotine (Nicoderm Cq) 1 patch TD DAILY [facility] Last Admin: 01/22/19 09:01 Dose: 1 patch Rosuvastatin Calcium (Crestor) 10 mg PO HS [facility] Last Admin: 01/21/19 22:06 Dose: 10 mg - Labs Labs: 01/22/19 07:11 01/22/19 07:11 PT 11.7 SECONDS (9.7-12.2) 01/20/19 12:35 INR 1.1 01/20/19 12:35 APTT 33.0 SECONDS (21-34) 01/20/19 12:35 - Constitutional Appears: No Acute Distress - Head Exam Head Exam: ATRAUMATIC, NORMOCEPHALIC - Eye Exam Eye Exam: Normal appearance - ENT Exam ENT Exam: Mucous Membranes Moist - Respiratory Exam Respiratory Exam: NORMAL BREATHING PATTERN Additional comments: Lungs clear - Cardiovascular Exam Cardiovascular Exam: REGULAR RHYTHM - Extremities Exam Additional comments: trace ankle edema. + bruit over AVF Assessment and Plan - Assessment and Plan (Free Text) Assessment: ESRD on HD MWF SOB, hx/o CHF, CAD DM Plan: Pt had tolerated extra dialysis yesterday BP stable Continue HD per schedule
[2019-01-22] MEDS: Lidocaine 5% Patch TD SCH (13:21)
--- NOTE | 2019-01-22 17:38 | CARD ---
APPROVED REPORT Date of service: 01/21/2019 EXAM: Two-dimensional and M-mode echocardiogram with Doppler and color Doppler. Other Information Quality : GoodRhythm : NSR INDICATION Chest Pain RISK FACTORS Hypertension 2D DIMENSIONS LA [id number] (18-58mL)IVC0.00 cm M-Mode DIMENSIONS Left Atrium (MM)4.27 (2.5-4.0cm)IVSd1.15 (0.7-1.1cm) Aortic Root2.78 (2.2-3.7cm)LVDd5.55 (4.0-5.6cm) Aortic Cusp Exc.1.70 (1.5-2.0cm)PWd1.04 (0.7-1.1cm) FS (%) 34 %LVDs3.64 (2.0-3.8cm) LVEF (%)63 (>50%) Aortic Valve AoV Peak Qgxinwfe113.5cm/Thee Peak GR.15mmHgAI P 1/2 [id number] Mitral Valve MV E Vxsoqvba988.2cm/sMV A Tblhbojk20.7cm/sE/A ratio1.5 TDI Lateral E' Peak V5.51cm/sMedial E' Peak V3.45cm/sE/Lateral E'24.2 E/Medial E'38.6 Tricuspid Valve TR Peak Ielhyksd199hh/sTR Peak Gr.[id number] LEFT VENTRICLE The left ventricle is normal size. There is normal left ventricular wall thickness. Left ventricle systolic function is normal. The Ejection Fraction is 60-65%. There is normal LV segmental wall motion. The left ventricular diastolic function is normal. RIGHT VENTRICLE The right ventricle is normal size. There is normal right ventricular wall thickness. The right ventricular systolic function is normal. ATRIA The left atrium size is normal. The right atrium size is normal. The interatrial septum is intact with no evidence for an atrial septal defect. AORTIC VALVE The aortic valve is normal in structure. There is mild to moderate aortic regurgitation. There is no aortic valvular stenosis. There is no aortic valvular vegetation. MITRAL VALVE The mitral valve is normal in structure. There is no evidence of mitral valve prolapse. There is no mitral valve stenosis. Mitral regurgitation is mild. TRICUSPID VALVE The tricuspid valve is normal in structure. There is moderate tricuspid regurgitation. Right ventricular systolic pressure is estimated at 50-60 mmHg. There is moderate-severe pulmonary hypertension. PULMONIC VALVE The pulmonic valve is not well visualized. There is mild pulmonic valvular regurgitation. GREAT VESSELS The aortic root is normal in size. PERICARDIAL EFFUSION There is no significant pericardial effusion. <Conclusion> Left ventricle systolic function is normal. The Ejection Fraction is 60-65%. There is mild to moderate aortic regurgitation. Mitral regurgitation is mild. There is moderate tricuspid regurgitation. There is moderate-severe pulmonary hypertension. There is mild pulmonic valvular regurgitation.
[2019-01-23] MEDS: (Novolin R) Insulin Human Regular 100 units/ml vial SC SCH ×3 (07:30→17:00)
--- NOTE | 2019-01-23 08:01 | CP.PCM.PN ---
Subjective - Date & Time of Evaluation Date of Evaluation: 01/23/19 Time of Evaluation: 07:59 - Subjective Subjective: Resident Progress Note for Hospitalist Service Objective - Vital Signs/Intake and Output Vital Signs (last 24 hours): Temp Pulse Resp BP Pulse Ox 98 F 65 20 141/59 L 96 01/22/19 23:25 01/23/19 03:07 01/22/19 23:25 01/22/19 23:25 01/22/19 23:25 - Medications Medications: Current Medications Acetaminophen (Tylenol 325mg Tab) 650 mg PO Q6 PRN PRN Reason: Pain, Mild (1-3) Last Admin: 01/22/19 16:54 Dose: 650 mg Allopurinol (Zyloprim) 100 mg PO DAILY [facility] Last Admin: 01/22/19 09:02 Dose: 100 mg Amlodipine Besylate (Norvasc) 5 mg PO DAILY [facility] Last Admin: 01/22/19 09:02 Dose: 5 mg Aspirin (Aspirin Chewable) 81 mg PO DAILY [facility] Last Admin: 01/22/19 09:01 Dose: 81 mg Carvedilol (Coreg) 3.125 mg PO BID [facility] Last Admin: 01/22/19 17:56 Dose: 3.125 mg Clopidogrel Bisulfate (Plavix) 75 mg PO DAILY [facility] Last Admin: 01/22/19 09:01 Dose: 75 mg Dextrose (Dextrose 50% Inj) 0 ml IV STAT PRN; Protocol PRN Reason: Hypoglycemia Protocol Dextrose (Glutose 15) 0 gm PO ONCE PRN; Protocol PRN Reason: Hypoglycemia Protocol Famotidine (Pepcid) 20 mg PO DAILY [facility] Last Admin: 01/22/19 09:01 Dose: 20 mg Glucagon (Glucagen Diagnostic Kit) 0 mg IM STAT PRN; Protocol PRN Reason: Hypoglycemia Protocol Dextrose (Dextrose 5% In Water 1000 Ml) 1,000 mls @ 0 mls/hr IV .Q0M PRN; Protocol PRN Reason: Hypoglycemia Protocol Insulin Human Regular (Novolin R) 0 unit SC ACHS [facility]; Protocol Last Admin: 01/22/19 21:30 Dose: Not Given Ketorolac Tromethamine (Toradol) 15 mg IVP Q6 PRN PRN Reason: Pain, moderate (4-7) Last Admin: 01/23/19 00:17 Dose: 15 mg Lidocaine (Lidoderm) 1 ea TD DAILY [facility] Last Admin: 01/22/19 13:21 Dose: 1 ea Nicotine (Nicoderm Cq) 1 patch TD DAILY [facility] Last Admin: 01/22/19 09:01 Dose: 1 patch Rosuvastatin Calcium (Crestor) 10 mg PO HS [facility] Last Admin: 01/22/19 21:40 Dose: 10 mg - Labs Labs: 01/22/19 07:11 01/22/19 07:11 PT 11.7 SECONDS (9.7-12.2) 01/20/19 12:35 INR 1.1 01/20/19 12:35 APTT 33.0 SECONDS (21-34) 01/20/19 12:35 - Constitutional Appears: Well, No Acute Distress - Head Exam Head Exam: NORMAL INSPECTION - Eye Exam Eye Exam: EOMI - ENT Exam ENT Exam: Mucous Membranes Moist - Respiratory Exam Respiratory Exam: Chest Wall Tenderness, Clear to Auscultation Bilateral, NORMAL BREATHING PATTERN - Cardiovascular Exam Cardiovascular Exam: REGULAR RHYTHM, +S1, +S2. absent: Tachycardia - GI/Abdominal Exam GI & Abdominal Exam: Soft, Normal Bowel Sounds. absent: Guarding, Rigid, Tenderness - Neurological Exam Neurological Exam: Alert, Awake, Oriented x3 Neuro motor strength exam: Left Upper Extremity: 5, Right Upper Extremity: 5 - Psychiatric Exam Psychiatric exam: Normal Affect, Normal Mood - Skin Skin Exam: Normal Color, Warm Assessment and Plan - Assessment and Plan (Free Text) Plan: Chest Pain, reproducible with palpation. 01/22: Still pending echo to be read. She denied shortness of breath, denied palpitations. 01/21: Troponins negative x 3. The chest pain seems reproducible, trying toradol to see if it gives her relief. This morning had the echo, pending read at this time. CXRAY still showing some congestion. On ASA, Plavix, Statin History of CAD with 5 stents - Chronic 01/21: As mentioned previously on ASA, Statin, Plavix. Echo and cardiology evaluation The chest pain is reproducible Bilateral Lower Extremity Swelling - Acute 2: Preliminary venous dopplers negative 01/21: Pending venous dopplers this morning Hypertension - Chronic 01/21: Systolic BPs are a little high (140, 150, 160) On norvasc 5. She is going for additional HD today so added very low dose Coreg for now and monitor ESRD on HD (MWF, left AVF) - Chronic Anemia of Chronic Disease - Chronic 01/22: Last night had more HD. Lower extremity edema resolved now. Not short of breath 01/21: Had HD last night, the patient will have another session this morning. Smoker: 01/21: She still smokes, despite stents, DM, CAD, and right now getting nicotine patch. Hyperlipidemia - Chronic - Started Crestor Type 2 DM (IDDM) - Chronic - Accuchecks, hypoglycemic protocol - ISS- low - Glucerna supplements Gout - Chronic Arthritis - Chronic Dementia - Chronic CVA - Chronic Encephalomalacia - Chronic Prophylactic Measures - GI PPX: Protonix - DVT PPX: SCD - PT / OT Eval - Suppp: Glucerna
[2019-01-23] MEDS: Lidocaine 5% Patch TD SCH ×2 (08:43→09:06)
--- NOTE | 2019-01-23 09:42 | VASCLAB ---
Date of service: 01/21/2019 PROCEDURE: Lower Extremity Venous Duplex Exam. HISTORY: DVT PRIORS: None. TECHNIQUE: Bilateral common femoral, femoral, popliteal and posterior tibial, peroneal and great saphenous veins were evaluated. Flow was assessed with color Doppler, compressibility, assessment of phasic flow and augmentation response. Report prepared by ELIZABETH Garcia FINDINGS: RIGHT: 1. Common Femoral Vein: 1.1. Compressibility - Fully compressible: Thrombus - None : Flow - Phasic: Augmentation -Normal: Reflux - None. 2. Femoral Vein: 2.1. Compressibility - Fully compressible: Thrombus - None : Flow - Phasic: Augmentation -Normal: Reflux - None. 3. Popliteal Vein: 3.1. Compressibility - Fully compressible: Thrombus - None : Flow - Phasic: Augmentation -Normal: Reflux - None. 4. Posterior Tibial Vein: 4.1. Compressibility - Fully compressible: Thrombus - None: Flow - Phasic: Augmentation -Normal: Reflux - None. 5. Peroneal Vein: 5.1. Compressibility - Fully compressible: Thrombus - None: Flow - Phasic: Augmentation -Normal: Reflux - None. 6. Great Saphenous Vein: 6.1. Compressibility - Fully compressible: Thrombus - None: Flow - Phasic: Augmentation - Normal: Reflux - None. LEFT: 1. Common Femoral Vein: 1.1. Compressibility - Fully compressible: Thrombus - None: Flow - Phasic: Augmentation -Normal: Reflux - None. 2. Femoral Vein: 2.1. Compressibility - Fully compressible: Thrombus - None: Flow - Phasic: Augmentation -Normal: Reflux - None. 3. Popliteal Vein: 3.1. Compressibility - Fully compressible: Thrombus - None : Flow - Phasic: Augmentation -Normal: Reflux - None. 4. Posterior Tibial Vein: 4.1. Compressibility - Fully compressible: Thrombus - None: Flow - Phasic: Augmentation -Normal: Reflux - None. 5. Peroneal Vein: 5.1. Compressibility - Fully compressible: Thrombus - None: Flow - Phasic: Augmentation -Normal: Reflux - None. 6. Great Saphenous Vein: 6.1. Compressibility - Fully compressible: Thrombus - None: Flow - Phasic: Augmentation - Normal: Reflux - None. OTHER FINDINGS: None significant. IMPRESSION: Right: No evidence of deep or superficial vein thrombosis of the right lower extremity. Normal valve function noted of the right side. Left: No evidence of deep or superficial vein thrombosis of the left lower extremity. Normal valve function noted of the left side.
[2019-01-23 10:05] LABS: BASO % 0.1 % (0.0-2.0); EOS # 0.2 K/uL (0.0-0.7); EOS % 4.1 % (0.0-4.0); HEMOGLOBIN 11.3 g/dL (11.0-16.0); LYMPH # 1.2 K/uL (1.0-4.3); LYMPH % 30.6 % (20.0-40.0); MEAN CELL VOLUME 97.2 fL (81.0-99.0); MEAN CORPUSCULAR HEMOGLOBIN 31.5 pg (27.0-31.0); MEAN CORPUSCULAR HGB CONC 32.4 g/dL (33.0-37.0); MEAN PLATELET VOLUME 9.3 fL (7.2-11.7); MONO # 0.6 K/uL (0.0-0.8); MONO % 15.8 % (0.0-10.0); NEUT % 49.4 % (50.0-75.0); NRBC % 0.2 % (0.0-2.0); RBC 3.6 Mil/uL (3.80-5.20); RED CELL DISTRIBUTION WIDTH 19.9 % (11.5-14.5)
[2019-01-23 10:20] LABS: ALB/GLOB RATIO 1.2 (1.0-2.1); ALBUMIN 3.4 g/dL (3.5-5.0); CALCIUM 8.4 mg/dl (8.6-10.4)
[2019-01-23 13:38] VITALS: O2SAT 96
[2019-01-23] MEDS ORDERED: Pneumococcal 23-Valent Vaccine IM ONE (14:00)
--- NOTE | 2019-01-23 14:19 | CP.PCM.PN ---
Subjective - Date & Time of Evaluation Date of Evaluation: 01/23/19 Time of Evaluation: 01:50 - Subjective Subjective: Feels better today. Pt states that she is less SOB today. Objective - Vital Signs/Intake and Output Vital Signs (last 24 hours): Temp Pulse Resp BP Pulse Ox 97.8 F 76 18 156/68 H 96 01/23/19 13:37 01/23/19 13:37 01/23/19 13:37 01/23/19 13:37 01/23/19 13:37 - Medications Medications: Current Medications Acetaminophen (Tylenol 325mg Tab) 650 mg PO Q6 PRN PRN Reason: Pain, Mild (1-3) Last Admin: 01/22/19 16:54 Dose: 650 mg Allopurinol (Zyloprim) 100 mg PO DAILY [facility] Last Admin: 01/23/19 09:03 Dose: 100 mg Amlodipine Besylate (Norvasc) 5 mg PO DAILY [facility] Last Admin: 01/22/19 09:02 Dose: 5 mg Aspirin (Aspirin Chewable) 81 mg PO DAILY [facility] Last Admin: 01/23/19 08:59 Dose: 81 mg Carvedilol (Coreg) 3.125 mg PO BID [facility] Last Admin: 01/22/19 17:56 Dose: 3.125 mg Clopidogrel Bisulfate (Plavix) 75 mg PO DAILY [facility] Last Admin: 01/23/19 09:01 Dose: 75 mg Dextrose (Dextrose 50% Inj) 0 ml IV STAT PRN; Protocol PRN Reason: Hypoglycemia Protocol Dextrose (Glutose 15) 0 gm PO ONCE PRN; Protocol PRN Reason: Hypoglycemia Protocol Famotidine (Pepcid) 20 mg PO DAILY [facility] Last Admin: 01/23/19 08:59 Dose: 20 mg Glucagon (Glucagen Diagnostic Kit) 0 mg IM STAT PRN; Protocol PRN Reason: Hypoglycemia Protocol Heparin Sodium (Porcine) (Heparin) 5,000 units SC Q8 [facility] Dextrose (Dextrose 5% In Water 1000 Ml) 1,000 mls @ 0 mls/hr IV .Q0M PRN; Protocol PRN Reason: Hypoglycemia Protocol Insulin Human Regular (Novolin R) 0 unit SC ACHS [facility]; Protocol Last Admin: 01/23/19 07:30 Dose: Not Given Ketorolac Tromethamine (Toradol) 15 mg IVP Q6 PRN PRN Reason: Pain, moderate (4-7) Last Admin: 01/23/19 00:17 Dose: 15 mg Lidocaine (Lidoderm) 1 ea TD DAILY [facility] Last Admin: 01/23/19 09:06 Dose: Not Given Nicotine (Nicoderm Cq) 1 patch TD DAILY [facility] Last Admin: 01/23/19 09:05 Dose: Not Given Rosuvastatin Calcium (Crestor) 10 mg PO HS [facility] Last Admin: 01/22/19 21:40 Dose: 10 mg - Labs Labs: 01/23/19 10:01 01/23/19 10:01 PT 11.7 SECONDS (9.7-12.2) 01/20/19 12:35 INR 1.1 01/20/19 12:35 APTT 33.0 SECONDS (21-34) 01/20/19 12:35 - Constitutional Appears: No Acute Distress - Eye Exam Eye Exam: Normal appearance - ENT Exam ENT Exam: Mucous Membranes Moist - Neck Exam Additional comments: Neck supple - Respiratory Exam Respiratory Exam: NORMAL BREATHING PATTERN Additional comments: Lungs cllear - Cardiovascular Exam Cardiovascular Exam: REGULAR RHYTHM - Extremities Exam Additional comments: No edema Assessment and Plan - Assessment and Plan (Free Text) Assessment: ESRD on maintenance HD Hx/o CHF, CAD DM with neuropathy Plan: Pt tolerated dialysis well today. Continue HD per schedule
--- NOTE | 2019-01-23 15:02 | CP.PCM.DIS ---
Provider - Provider Date of Admission: 01/20/19 14:32 Attending physician: Jordan Walter DO Consults: 01/20/19 16:01 Nephrology Consult Routine Comment: Consulting Provider: Jonathan Garay Consulting Physician: Jonathan Garay Reason for Consult: ESRD on HD MWF (Nephro: Dr. Martinez) 01/20/19 16:28 Cardiology Consult Routine Comment: Consulting Provider: Madhu Jefferson Consulting Physician: Madhu Jefferson Reason for Consult: Chest Pain hx CAD with PCI; HTN, DM, ESRD 01/20/19 16:57 Social Work Referral Routine Comment: uvaldo sore 14 Physician Instructions: Reason For Exam: uvaldo score 14,on hemodialysis,lives alone w/ h 01/20/19 20:32 Cardiology Consult Routine Comment: CHEST PAIN Consulting Provider: Freida Astudillo Consulting Physician: Freida Astudillo Reason for Consult: PHYSICIAN COVERING DR. JEFFERSON Time Spent in preparation of Discharge (in minutes): 35 Diagnosis - Discharge Diagnosis (1) Chest pain Status: Resolved (2) ESRD (end stage renal disease) on dialysis Status: Chronic (3) HTN (hypertension) Status: Chronic (4) Hx of coronary artery disease Status: Chronic Hospital Course - Lab Results Lab Results: Most Recent Lab Values WBC 4.0 K/uL (4.8-10.8) L 01/23/19 10:01 RBC 3.60 Mil/uL (3.80-5.20) L 01/23/19 10:01 Hgb 11.3 g/dL (11.0-16.0) 01/23/19 10:01 Hct 35.0 % (34.0-47.0) 01/23/19 10:01 MCV 97.2 fL (81.0-99.0) 01/23/19 10:01 MCH 31.5 pg (27.0-31.0) H 01/23/19 10:01 MCHC 32.4 g/dL (33.0-37.0) L 01/23/19 10:01 RDW 19.9 % (11.5-14.5) H 01/23/19 10:01 Plt Count 157 K/uL (130-400) 01/23/19 10:01 MPV 9.3 fL (7.2-11.7) 01/23/19 10:01 Neut % (Auto) 49.4 % (50.0-75.0) L 01/23/19 10:01 Lymph % (Auto) 30.6 % (20.0-40.0) 01/23/19 10:01 [place] % (Auto) 15.8 % (0.0-10.0) H 01/23/19 10:01 Eos % (Auto) 4.1 % (0.0-4.0) H 01/23/19 10:01 Baso % (Auto) 0.1 % (0.0-2.0) 01/23/19 10:01 Neut # (Auto) 2.0 K/uL (1.8-7.0) 01/23/19 10:01 Lymph # (Auto) 1.2 K/uL (1.0-4.3) 01/23/19 10:01 [place] # (Auto) 0.6 K/uL (0.0-0.8) 01/23/19 10:01 Eos # (Auto) 0.2 K/uL (0.0-0.7) 01/23/19 10:01 Baso # (Auto) 0.0 K/uL (0.0-0.2) 01/23/19 10:01 PT 11.7 SECONDS (9.7-12.2) 01/20/19 12:35 INR 1.1 01/20/19 12:35 APTT 33.0 SECONDS (21-34) 01/20/19 12:35 Sodium 133 mmol/L (132-148) 01/23/19 10:01 Potassium 4.3 mmol/L (3.6-5.2) 01/23/19 10:01 Chloride 93 mmol/L (98-107) L 01/23/19 10:01 Carbon Dioxide 27 mmol/L (22-30) 01/23/19 10:01 Anion Gap 17 (10-20) 01/23/19 10:01 BUN 44 mg/dL (7-17) H 01/23/19 10:01 Creatinine 4.9 mg/dL (0.7-1.2) H 01/23/19 10:01 Est GFR ( Amer) 10 01/23/19 10:01 Est GFR (Non-Af Amer) 9 01/23/19 10:01 POC Glucose (mg/dL) 164 mg/dL (65-110) H 01/23/19 12:44 Random Glucose 132 mg/dL (65-105) H D 01/23/19 10:01 Hemoglobin A1c 5.5 % (4.2-6.5) 01/21/19 06:27 Calcium 8.4 mg/dl (8.6-10.4) L 01/23/19 10:01 Phosphorus 5.5 mg/dL (2.5-4.5) H 01/23/19 10:01 Magnesium 1.8 mg/dL (1.6-2.3) 01/23/19 10:01 Total Bilirubin 0.5 mg/dL (0.2-1.3) 01/23/19 10:01 AST 35 U/L (14-36) 01/23/19 10:01 ALT 14 U/L (9-52) 01/23/19 10:01 Alkaline Phosphatase 159 U/L (38-126) H 01/23/19 10:01 Total Creatine Kinase 39 U/L (30-135) 01/20/19 19:59 CK-MB (Mass) 0.90 ng/mL (0.0-3.38) 01/20/19 19:59 Troponin I 0.0280 ng/mL (0.00-0.120) 01/20/19 19:59 NT-Pro-B Natriuret Pep 96104 pg/mL (0-900) H 01/20/19 12:35 Total Protein 6.3 g/dL (6.3-8.3) 01/23/19 10:01 Albumin 3.4 g/dL (3.5-5.0) L 01/23/19 10:01 Globulin 2.9 gm/dL (2.2-3.9) 01/23/19 10:01 Albumin/Globulin Ratio 1.2 (1.0-2.1) 01/23/19 10:01 Triglycerides 89 mg/dL (0-149) 01/21/19 06:27 Cholesterol 155 mg/dL (0-199) 01/21/19 06:27 LDL Cholesterol Direct 66 mg/dL (0-129) 01/21/19 06:27 HDL Cholesterol 56 mg/dL (30-70) 01/21/19 06:27 Free T4 1.65 ng/dL (0.78-2.19) 01/21/19 06:27 TSH 3rd Generation 0.27 mIU/L (0.46-4.68) L 01/21/19 06:27 Hep Bs Antigen Negative (NEGATIVE) 01/21/19 10:36 - Hospital Course Hospital Course: On admission: This is an 83 year old female with PMHx of Hypertension, Hyperlipidemia, Type 2 DM (IDDM), ESRD on HD (MWF, left AVF), hx CAD with stents, Anemia of Chronic Disease, Gout, Arthritis, Dementia, Tobacco Use Disorder, CVA, and encephalomalacia who presents to the ED with chest pain x 1 day, dyspnea on exertion x 1 month. Patient reports she ambulates with cane or walker and noticed the past month she has become more short of breath while ambulating. She admits she cannot lie down flat without having a sensation of choking. She admits her bilateral lower extremities have been getting more swollen over time. This morning she woke up and she felt generalized weakness. She admitted to left sided chest pain that radiates up to her neck, associated with diaphoresis and shortness of breath. The left sided chest pain is reproducible on exam. Denied fever, chills, sick contacts, recent travel, ab dominal pain, n/v/d/c, or urinary complaints. During hospital stay: Troponins were negative x3. EKG showed RBBB, left anterior fascicular block. Cardiology was consulted, advised that chest pain is noncardiac in nature. CXR showed some congestion. Venous dopplers were done which were negative for DVT. Nephrology was consulted, recommended extra dialysis due to signs of overload which was done on 01/21. In total, patient had dialysis on 01/20, 01/21, and 01/23 which she tolerated well. ECHO was done which showed LVEF 60-65%, mild to moderate AR, mild MR, moderate TR, moderate severe pulmonary hypertension, mild pulmonic valvular regurgitation. Patient still smokes despite counseling. She was placed on nicotine patch. Patient was optimized for discharge and was discharged with prescriptions for nicotine patch and lidoderm patch. Please see EMR for full summary. Discharge Exam - Additional Findings Additional findings: - Constitutional Appears: Well, No Acute Distress - Head Exam Head Exam: NORMAL INSPECTION, NORMOCEPHALIC - Eye Exam Eye Exam: EOMI, Normal Appearance - ENT Exam ENT Exam: Mucous Membranes Moist - Respiratory Exam Respiratory Exam: Chest Wall Tenderness, Clear to Auscultation Bilateral, NORMAL BREATHING PATTERN. absent: Wheezes, Ronchi - Cardiovascular Exam Cardiovascular Exam: REGULAR RHYTHM, +S1, +S2. absent: Tachycardia - GI/Abdominal Exam GI & Abdominal Exam: Soft, Normal Bowel Sounds. absent: Guarding, Rigid, Tenderness - Neurological Exam Neurological Exam: Alert, Awake, Oriented x3 Neuro motor strength exam: Left Upper Extremity: 5, Right Upper Extremity: 5 - Psychiatric Exam Psychiatric exam: Normal Affect, Normal Mood - Skin Skin Exam: Normal Color, Warm Discharge Plan - Discharge Medications Prescriptions: Lidocaine 5% [Lidoderm] 1 ea TD DAILY 14 Days #14 patch Nicotine 14 mg/24 hr [Nicoderm CQ] 1 patch TD DAILY 14 Days #14 patch - Follow Up Plan Condition: GOOD Disposition: HOME/ ROUTINE Patient education suggested?: Yes Instructions: Chest Pain That Is Not Caused by the Heart (DC), Lidocaine (Topical), Nicotine, Chronic Kidney Disease (DC), Renal Failure Diet (DC) Additional Instructions: Follow up with your primary medical doctor within one week Also follow up with your mergers and acquisitions associate and applications coordinator within one to two weeks Resume your home medications as prescribed Return to ED if symptoms return or worsen Referrals: Vianca Powers MD [Staff Provider] - Madhu Jefferson MD [Staff Provider] -
--- NOTE | 2019-01-23 15:57 | CARD ---
APPROVED REPORT Date of service: 01/21/2019 EKG Measurement Heart [id number] <Conclusion> Normal sinus rhythm Right bundle branch block Left anterior fascicular block Bifascicular block Voltage criteria for left ventricular hypertrophy T wave abnormality, consider lateral ischemia Abnormal ECG
[2019-01-23 16:41] VITALS: PULSE 79
[2019-01-23 17:00] VITALS: BP 136/54; RESP 20; TEMP 98.2
--- NOTE | 2019-01-25 22:22 | CARD ---
APPROVED REPORT Date of service: 01/20/2019 EKG Measurement Heart [id number] <Conclusion> Normal sinus rhythm Right bundle branch block Left anterior fascicular block Bifascicular block Voltage criteria for left ventricular hypertrophy Abnormal ECG
--- NOTE | 2019-01-25 22:30 | CARD ---
APPROVED REPORT Date of service: 01/20/2019 EKG Measurement Heart [id number] <Conclusion> Normal sinus rhythm Right bundle branch block Left anterior fascicular block Bifascicular block Voltage criteria for left ventricular hypertrophy T wave abnormality, consider lateral ischemia Abnormal ECG
== END 2019-01-23 18:48 | disposition home or self-care (01) | DRG 313 ==
LOC: C.ER 11:37 → C.9E 14:32 → C.6T 14:53
PROVIDERS: ADMIT Hospitalist; ATTEND Hospitalist
PROC: 5A1D70Z Performance of Urinary Filtration, Intermittent, Less than 6 Hours Per Day (ICD-10-PCS; principal; 2019-01-20)
PROC: 5A1D70Z Performance of Urinary Filtration, Intermittent, Less than 6 Hours Per Day (ICD-10-PCS; 2019-01-21)
PROC: 5A1D70Z Performance of Urinary Filtration, Intermittent, Less than 6 Hours Per Day (ICD-10-PCS; 2019-01-23)
DX: R07.89 Other chest pain (principal); N18.6 End stage renal disease; I13.2 Hypertensive heart and chronic kidney disease with heart failure and with stage 5 chronic kidney disease, or end stage renal disease; I45.2 Bifascicular block; D63.8 Anemia in other chronic diseases classified elsewhere; E11.22 Type 2 diabetes mellitus with diabetic chronic kidney disease; E78.5 Hyperlipidemia, unspecified; F03.90 Unspecified dementia, unspecified severity, without behavioral disturbance, psychotic disturbance, mood disturbance, and anxiety; F17.210 Nicotine dependence, cigarettes, uncomplicated; G93.89 Other specified disorders of brain; H40.9 Unspecified glaucoma; I25.10 Atherosclerotic heart disease of native coronary artery without angina pectoris; I27.20 Pulmonary hypertension, unspecified; I50.9 Heart failure, unspecified; J45.909 Unspecified asthma, uncomplicated; M1A.9XX0 Chronic gout, unspecified, without tophus (tophi); Z79.4 Long term (current) use of insulin; Z86.73 Personal history of transient ischemic attack (TIA), and cerebral infarction without residual deficits; Z95.5 Presence of coronary angioplasty implant and graft; Z99.2 Dependence on renal dialysis; E11.40 Type 2 diabetes mellitus with diabetic neuropathy, unspecified